=== PATIENT | male | born 2000 | race Caucasian/White ===

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

== ENCOUNTER 2020-04-11 14:01 | Emergency (ER) | payer OTHER, SELFPAY ==
[2020-04-11] VITALS (10 sets, daily range): BP systolic 124–143; BP diastolic 69–81; PULSE 63–88; RESP 15–18; TEMP 36.6–36.8; O2SAT 94–98; BMI 19.2
--- NOTE | 2020-04-11 14:31 | ED_ITS ---
HPI - Dizziness <Sammie Avilez PA-C - Last Filed: 04/11/20 19:55> General Chief Complaint: Dizziness Stated Complaint: Working On Car, Hands Went Numb, Light Headed Time Seen by Provider: 04/11/20 14:09 Source: patient Mode of arrival: Ambulatory History of Present Illness HPI Narrative: Gelacio is a 19 yo male that presents to emergency department with numb hands and dizziness. He also reports having a cough, chest congestion, and sore throat. He reports that he was homeless and currently lives in his car. He explains that he has been really cold lately since the temp outside has been low. He reports that his last meal was yesterday which he believes is attributing to his dizziness. He denies previous episodes similar to this in the past. He reports that he was working on his car as he was leaning over the mazariegos, he noticed that is hands were numb. He put his gloves on and had no relief. He explains that his hands are still numb in the unit today. He denies any back pain. He reports that he does have some bilateral posterior neck pain. He denies chest pain or shortness a breath. He denies nausea, vomiting or diarrhea. He reports some abdominal pain but thinks it is from being hungry. He denies any weakness. Related Data Previous Rx's Medication Instructions Recorded metoclopramide HCl [Reglan] 10 mg PO Q6H PRN #14 tab 07/27/19 ondansetron 4 mg PO Q6H PRN #14 tab 07/27/19 Allergies Allergy/AdvReac Type Severity Reaction Status Date / Time morphine Allergy Hives Verified 04/11/20 14:13 Review of Systems <Sammie Avilez PA-C - Last Filed: 04/11/20 19:55> Constitutional Constitutional: Reports body ache(s), Denies chills, Denies fever(s), Denies poor appetite and Denies weakness Eyes Eyes: Denies loss of vision ENT Ears, Nose, Mouth, and Throat: Reports dizziness and Reports neck pain Cardiovascular Cardiovascular: Denies chest pain, Denies syncope and Denies dyspnea Respiratory Respiratory: Reports chest congestion, Reports cough, Denies dyspnea and Reports wheezing Gastrointestinal Gastrointestinal: Reports abdominal pain, Denies hematochezia, Denies change in stool character, Denies constipation, Denies excessive flatus, Denies fecal incontinence, Denies diarrhea, Denies nausea and Denies vomiting Genitourinary Genitourinary: Reports system reviewed and no additional complaints, except as documented Musculoskeletal Musculoskeletal: Reports neck pain Integumentary/Breasts Skin/Breast: Denies rash Neurologic Neurologic: Reports behavioral changes, Reports dizziness, Denies syncope, Denies loss of vision and Denies weakness Psychiatric Psychiatric: Reports behavioral changes Endocrine Endocrine: Reports cold intolerance Hematologic/Lymphatic Hematologic/Lymphatic: Denies easy bleeding and Denies easy bruising Allergic/Immunologic Allergic/Immunologic: Reports wheezing Patient History <Sammie Avilez PA-C - Last Filed: 04/11/20 19:55> Medical History (Updated 04/11/20 @ 17:03 by Sammie Avilez PA-C) Asthma (Acute) Social History Smoking Status: Current every day smoker Smoking Status: Current every day smoker tobacco type: cigarettes and vaping alcohol intake frequency: a few times a month Substance Use Type: marijuana Exam <Sammie Avilez PA-C - Last Filed: 04/11/20 19:55> Initial Vital Signs Initial Vital Signs: Vital Signs Temperature 98.2 F 04/11/20 14:07 Pulse Rate 68 04/11/20 14:07 Respiratory Rate 15 04/11/20 14:07 Blood Pressure 127/81 04/11/20 14:07 Pulse Oximetry 97 04/11/20 14:07 . Const General: cooperative, healthy appearing, comfortable and well developed [facility] Head: normal to inspection Ears: hearing grossly normal bilaterally and external ears normal Nose: external nose normal Face and sinus: normal facial exam Mouth: oral mucosae normal Teeth and gingiva: dentition normal and gingiva normal Throat: posterior oropharynx normal Eyes Eyelids: eyelids normal Conjunctivae: conjunctivae normal Sclera: sclerae normal Neck Neck: normal visual inspection, full ROM and No lymphadenopathy Chest Chest: normal inspection of the chest Resp Effort & Inspection: normal respiratory effort and able to speak in complete sentences Auscultation: crackles bilaterally throughout and wheezes scattered wheezes Cardio Rate: regular rate Rhythm: regular rhythm Heart Sounds: S1 normal, S2 normal and no murmurs GI Inspection: normal to inspection Back/Spine/Pelvis Cervical Spine: cervical ROM normal Thoracic/Lumbar Spine: thoracic and lumbar spine normal to inspection and No paraspinal tenderness Skin General: no rashes or lesions noted, elasticity normal and turgor normal Neuro General: patient alert, patient awake and patient oriented x3 Cognition: normal cognition Speech: speech normal Gait: normal gait Motor: muscle tone normal throughout Extrem General: normal to inspection, full ROM and capillary refill normal Psych Appearance: grossly normal Mental Status: mental status grossly normal Speech and Movement: speech and movement normal <Laci Perez DO - Last Filed: 04/12/20 07:29> Initial Vital Signs Initial Vital Signs: Vital Signs Temperature 98.2 F 04/11/20 14:07 Pulse Rate 68 04/11/20 14:07 Respiratory Rate 15 04/11/20 14:07 Blood Pressure 127/81 04/11/20 14:07 Pulse Oximetry 97 04/11/20 14:07 Course <Sammie Avilez PA-C - Last Filed: 04/11/20 19:55> Course Course Narrative: 1430: evaluated pt at bedside, lungs were concerning due to wheezing and cough. Chest xray ordered. Pt was provided with blanket and sandwich. Will check again to see if symptoms have improved. 1500: xray revealed possible reactive airway disease. Albuterol ordered. 1530: checked on pt, he is no longer feeling lightheaded since he has eaten. He still is having some chest congestion and hands are still numb, hand warmers given to pt to see if this can help with numbness 1545: he reported small improvement with albuterol, decadron and hand warmers, h ands less numb, less light headed/dizzy 1650: check on pt- he is doing better overall. Believes he was dehydrated, hungry, numb hands from the cold, and chest tightness from reactive airway disease- pt reported improvement, will begin discharge at this time Orders Ordered: Discontinued Medications Albuterol (Ventolin Hfa Prepack) 1 box MISC SEEINSTR ONE Stop: 04/11/20 15:01 Last Admin: 04/11/20 16:02 Dose: 1 box Documented by: JFWESTON Dexamethasone (Decadron) 10 mg IV NOW ONE Stop: 04/11/20 15:28 Last Admin: 04/11/20 15:41 Dose: Not Given Documented by: MEGANARTIN Dexamethasone (Decadron) 10 mg PO NOW ONE Stop: 04/11/20 15:32 Last Admin: 04/11/20 15:40 Dose: 10 mg Documented by: ESTHER Consultations Consultation #1: Dr Perez was staffed on presentation, examination, and plan of care Vital Signs Vital signs: Vital Signs - 8 hr 04/11/20 14:07 04/11/20 14:57 04/11/20 15:00 Temperature 98.2 F Pulse Rate 68 79 88 Respiratory Rate 15 Blood Pressure 127/81 Pulse Oximetry 97 97 97 04/11/20 15:30 04/11/20 16:00 04/11/20 16:04 Temperature Pulse Rate 80 63 72 Respiratory Rate 18 Blood Pressure Pulse Oximetry 98 98 98 04/11/20 16:14 04/11/20 16:30 04/11/20 16:31 Temperature 97.8 F Pulse Rate 77 80 75 Respiratory Rate Blood Pressure 143/73 H 124/69 Pulse Oximetry 97 94 96 04/11/20 17:00 Temperature Pulse Rate Respiratory Rate Blood Pressure 126/79 Pulse Oximetry <Laci Perez DO - Last Filed: 04/12/20 07:29> Orders Ordered: Discontinued Medications Albuterol (Ventolin Hfa Prepack) 1 box MISC SEEINSTR ONE Stop: 04/11/20 15:01 Last Admin: 04/11/20 16:02 Dose: 1 box Documented by: HELENA Dexamethasone (Decadron) 10 mg IV NOW ONE Stop: 04/11/20 15:28 Last Admin: 04/11/20 15:41 Dose: Not Given Documented by: ESTHER Dexamethasone (Decadron) 10 mg PO NOW ONE Stop: 04/11/20 15:32 Last Admin: 04/11/20 15:40 Dose: 10 mg Documented by: ESTHER Vital Signs Vital signs: Vital Signs - 8 hr 04/11/20 14:07 04/11/20 14:57 04/11/20 15:00 Temperature 98.2 F Pulse Rate 68 79 88 Respiratory Rate 15 Blood Pressure 127/81 Pulse Oximetry 97 97 97 04/11/20 15:30 04/11/20 16:00 04/11/20 16:04 Temperature Pulse Rate 80 63 72 Respiratory Rate 18 Blood Pressure Pulse Oximetry 98 98 98 04/11/20 16:14 04/11/20 16:30 04/11/20 16:31 Temperature 97.8 F Pulse Rate 77 80 75 Respiratory Rate Blood Pressure 143/73 H 124/69 Pulse Oximetry 97 94 96 04/11/20 17:00 Temperature Pulse Rate Respiratory Rate Blood Pressure 126/79 Pulse Oximetry MDM - Dizziness <Sammie Avilez PA-C - Last Filed: 04/11/20 19:55> Medical Records Attestation: I reviewed the patient's medical records. Lab Data Attestation: I reviewed the patient's lab results. Labs: Lab Results 04/11/20 Range/Units 16:00 COVID-19 PCR Negative (Negative) Imaging Data Chest x-ray: Attestation: I personally reviewed and interpreted this imaging study as follows: Radiologist's Impression: [address] [address] XRay Report Signed Patient: Gelacio Nichole RMR#: [id number] : 2000Acct:[id number] Age/Sex: 19 / MDate of Service: 04/11/20 Loc: ED Accession Number: [id number] Procedure: XR chest 2V Ordering Provider: Sammie Avilez P.A-C PROCEDURE: XR CHEST 2V INDICATIONS: cough/wheezing TECHNIQUE: 2 views of the chest were acquired. COMPARISON: [facility], CHEST 2 VIEW, 10/24/2010, 9:00. FINDINGS: Surgical changes and devices: None. Lungs and pleura: Peribronchial cuffing. Subtle bilateral perihilar infiltrates. No pleural effusions or pneumothorax. Mediastinum: Mediastinal contours are normal. Heart size is normal. Bones and chest wall: No suspicious bony abnormalities. Soft tissues appear unremarkable. IMPRESSION: Subtle bilateral perihilar infiltrates and peribronchial cuffing. Findings may potentially represent reactive airway disease versus viral pneumonitis. Dictated by: Maurilio Castro M.D. on 04/11/2020 at 15:08 Approved by: Maurilio Castro M.D. on 04/11/2020 at 15:10 [facility] Narrative Medical decision making narrative: 19 yo male presents with numbness in hands, dizziness, and chest congestion. Low suspicion of stroke due to age, no neurological symptoms, and no history of clotting disorders. Low suspicion of cardiac since he did not have chest pain, nausea, and due to his age. Pt had not eaten in a day, so dizziness probably attributed to hunger/dehydration. This did improve during visit after eating and drinking. He reports history of asthma. Chest xray ordered to look at lungs- possible viral pneumonitis vs reactive airway disease. Pt was given albuterol and decadron and noted some improvement. No evidence of pneumonia on chest xray. Pt was afebrile. Not tachypneic, non-hypoxic. COVID negative. <Laci Perez DO - Last Filed: 04/12/20 07:29> Lab Data Labs: Lab Results 04/11/20 Range/Units 16:00 COVID-19 PCR Negative (Negative) Discharge Plan Departure Patient Disposition: Home Clinical Impression: Bilateral hand numbness, Dizziness Asthma Qualifiers: Asthma severity: mild Asthma persistence: unspecified Asthma complication type: unspecified Qualified Code(s): J45.909 - Unspecified asthma, uncomplicated Discharge Date/Time: 04/11/20 17:12 Instructions: DI for Asthma -- Adult, DI for Dizziness-Nonvertigo Activity Restrictions/Additional Instructions: Thank you for entrusting me with your care today. As discussed, please push fluids to help with hydration status. I recommend keeping warm as much as possible to help with hand numbness. Please eat regularly to keep from getting lightheaded/dizzy. Return to ER if symptoms worsen. Prescriptions: No Action ondansetron 4 mg tablet,disintegrating 4 mg PO Q6H PRN (Reason: nausea and vomiting) Qty: 14 RF: 0 metoclopramide HCl [Reglan] 10 mg tablet 10 mg PO Q6H PRN (Reason: nausea and vomiting) Qty: 14 RF: 0 <Laci Perez DO - Last Filed: 04/12/20 07:29> Cosign ED Attending Cosignature Attestation: Dr Perez Co-Sign Statement: I was available for consultation during this patient's emergency department visit. This chart is signed by myself for administrative purposes only. I did not have direct contact with this patient during this visit. They were seen independently by the APC.
--- NOTE | 2020-04-11 14:57 | PC.NURSE ---
Patient provided with water, sandwiches, and juice.
[2020-04-11] MEDS: DEXAMETHASONE 10 MG/ML VIAL PO (15:40)
[2020-04-11] MEDS: ALBUTEROL HFA PREPACK 1 BOX MISC (16:02)
[2020-04-11 16:38] LABS: COVID19 -Nasal RAPID Negative (Negative)
== END 2020-04-11 17:12 | disposition home or self-care (01) ==
PROVIDERS: Emergency Provider Physician Assistant; Family Provider Family Medicine
DX: J45.909 Unspecified asthma, uncomplicated (principal); R20.0 Anesthesia of skin; R42 Dizziness and giddiness; R05 Cough; J02.9 Acute pharyngitis, unspecified; R10.9 Unspecified abdominal pain
CPT/HCPCS: 71046; 87635; 94640; 99283; J1100

== ENCOUNTER 2020-07-06 20:52 | Emergency (ER) | payer OTHER, MEDICAID, SELFPAY ==
[2020-07-06 20:59] VITALS: BP 136/83; PULSE 71; RESP 18; TEMP 36.8; O2SAT 99
[2020-07-06 21:27] LABS: Add Manual Diff / Slide Review NO; Basophils Absolute Auto 100 /uL (0-100); Basophils Percent Auto 0.5 % (0-2); Eosinophils Absolute Auto 100 /uL (0-450); Eosinophils Percent Auto 0.6 % (2-4); Hemoglobin 14.8 g/dL (13.5-17.5); Lymphocytes Absolute Auto 2200 /uL (1100-4500); Lymphocytes Percent Auto 19.3 % (25-40); Mean Corpuscular HGB Conc 33.7 % (30-36); Mean Corpuscular Hemoglobin 31.7 PG (26-34); Mean Corpuscular Volume 93.9 fL (80-100); Monocytes Absolute Auto 900 /uL (0-900); Monocytes Percent Auto 7.7 % (3-14); Neutrophils Absolute Auto 8300 /uL (1500-7000); Neutrophils Percent Auto 71.9 % (50-75); Platelet Count 201 X10^3/uL (150-400); Red Blood Cell Count 4.68 X10^6/uL (4.5-5.9); Red Cell Distribution Width 13.4 % (11.6-14.8); White Blood Cell Count 11.5 X10^3/uL (4.5-11.0)
[2020-07-06 21:29] LABS: INR 1.1 (0.9-1.3); Prothrombin Time 12.7 SECONDS (10.1-12.7)
[2020-07-06 21:31] LABS: PTT Partial Thromboplastin Tim 34 SECONDS (26.4-36.2)
[2020-07-06 21:32] LABS: Alanine Aminotransferase 15 IU/L (<50); Albumin 4.8 g/dL (3.5-5.0); Albumin Globulin Ratio 1.7 (1.0-2.8); Alkaline Phosphatase 90 U/L (38-126); Aspartate Aminotransferase 21 IU/L (17-59); BUN Creatinine Ratio 11.3 (6-22); Bilirubin Total 0.3 mg/dL (0.2-1.3); Blood Urea Nitrogen 12 mg/dL (9-20); Carbon Dioxide 28 mmol/L (22-32); Chloride 105 mmol/L (98-107); Estimated Glomerular Filt Rate > 60.0 mL/min (>60); Globulin 2.8 g/dL (1.7-4.1); Glucose 96 mg/dL (70-100); HEMOLYSIS < 15 (0-50); Lipase 58 U/L (23-300); Potassium 4.4 mmol/L (3.4-5.1); Sodium 139 mmol/L (137-145); Total Protein 7.6 g/dL (6.3-8.2)
--- NOTE | 2020-07-06 22:40 | DI.CT.S_ITS ---
PROCEDURE: CT ABDOMEN PELVIS W CON INDICATIONS: IV contrast only/abdominal pain TECHNIQUE: After the administration of intravenous contrast, 5 mm thick sections acquired from the diaphragm to the symphysis. 5 mm coronal and sagittal reformats were acquired. For radiation dose reduction, the following was used: automated exposure control, adjustment of mA and/or kV according to patient size. COMPARISON: [facility], CT, CT ABDOMEN PELVIS W CON, 07/27/2019, 19:04. FINDINGS: Image quality: Excellent. ABDOMEN: Lung bases: Lung bases are clear. Heart size is normal. Small hiatal hernia. Solid organs: Liver is normal in size and enhancement. Gallbladder is normal. Biliary system is non dilated. Pancreas enhances normally. Spleen is normal in size and enhancement. No adrenal nodules. Kidneys demonstrate normal size and enhancement, without hydronephrosis. Peritoneum and bowel: Stomach is distended with an air-fluid level. Mild segmental bowel wall thickening is seen in proximal small intestine. Bowel loops demonstrate normal wall thickness and caliber. Moderate amount of stool in colon. Appendix is normal. No free fluid or air. Nodes and vessels: No retroperitoneal or mesenteric adenopathy by size criteria. Aorta and inferior vena cava are normal in size. Miscellaneous: No ventral hernias. PELVIS: Genitourinary: Bladder wall thickness is normal. Miscellaneous: No inguinal hernias or adenopathy. Bones: No suspicious bony lesions. No vertebral body compression fractures. IMPRESSION: 1. Distended stomach and mild segmental bowel wall thickening is seen in proximal small intestine. The CT findings suggest gastroenteritis. No significant discrepancy with the operations supervisor 2nd shift radiology preliminary report. Dictated by: Delmer Long M.D. on 07/07/2020 at 7:34 Approved by: Delmer Long M.D. on 07/07/2020 at 7:39
--- NOTE | 2020-07-06 22:41 | DI.RAD.S_ITS ---
PROCEDURE: XR KNEE LT 3V INDICATIONS: Pain TECHNIQUE: 3 views of the knee were acquired. COMPARISON: None. FINDINGS: Bones: Intramedullary abel with 2 distal interlocking screws noted in the distal left femur. No fractures or dislocations. No suspicious bony lesions. Soft tissues: No joint effusion. No suspicious soft tissue calcifications. IMPRESSION: No acute fracture. No acute osseous lesion. If symptoms and/or clinical suspicion for pathology persists, further assessment with repeat radiographs (7-10 days) or advanced imaging (e.g. CT, MRI or bone scan) should be considered. Dictated by: Sonia Kincaid MD, PhD on 07/07/2020 at 9:13 Approved by: Sonia Kincaid MD, PhD on 07/07/2020 at 9:15
--- NOTE | 2020-07-06 22:42 | ED.ABDPAIN ---
HPI - Abdominal Pain General Chief Complaint: Abdominal Pain Stated Complaint: STATES APPENDIX HURTS Time Seen by Provider: 07/06/20 22:07 Source: patient Mode of arrival: Ambulatory History of Present Illness HPI narrative: Patient here with significant other. Complains of left upper quadrant abdominal pain for the past 2 days. Nausea but no vomiting. No blood in stools or black stools. No changes with eating. Patient states has history of ulcer. Is not on any medications to help. Drinks a lot of carbonated drinks as well as spicy foods. Also complains of left knee pain that is not new. History of injured left knee when he was 16 years of age. No back pain no chest pain no urinary complaints. No hematemesis Related Data Previous Rx's Medication Instructions Recorded metoclopramide HCl [Reglan] 10 mg PO Q6H PRN #14 tab 07/27/19 ondansetron 4 mg PO Q6H PRN #14 tab 07/27/19 ondansetron 4 mg PO Q8H PRN #10 tab 07/06/20 pantoprazole [Protonix] 40 mg PO DAILY #14 tab 07/06/20 sucralfate [Carafate] 1 g PO BID #20 tab 07/06/20 Allergies Allergy/AdvReac Type Severity Reaction Status Date / Time morphine Allergy Hives Verified 04/11/20 14:13 Review of Systems Review of Systems Narrative: GENERAL: Denies chills, fatigue, malaise, fever, sweats. HEENT: Denies sinus pain, ear pain, sore throat RESPIRATORY: Denies dyspnea, cough CARDIOVASCULAR: Denies chest pain, palpitations GASTROINTESTINAL: Complains nausea, denies vomiting, complaint abdominal pain : Denies dysuria, frequency, hematuria MUSCULOSKELETAL: denies muscle complains bony pain SKIN: Denies rash, skin lesions NEUROLOGIC: Denies weakness, numbness ROS Unobtainable: All systems reviewed & are unremarkable except as noted in HPI and below Patient History Medical History Asthma Social History Smoking Status: Current every day smoker Smoking Status: Current every day smoker tobacco type: cigarettes and vaping alcohol intake frequency: a few times a month Substance Use Type: marijuana Exam Narrative Exam Narrative: GENERAL: in no distress, not toxic not dyspneic HEAD: Normocephalic. EYES: Pupils equal round No scleral icterus. No injection no discharge ENT: Mucous membranes moist. NECK: Trachea midline. CARDIOVASCULAR: Regular rate and rhythm without murmurs RESPIRATORY: Clear to auscultation. Breath sounds equal bilaterally. No wheezes, rales, or rhonchi. GASTROINTESTINAL: Abdomen soft, moderate tenderness left upper quadrant. No McBurney point tenderness. No peritoneal signs. Bowel sounds present, no rebound tenderness EXTREMITIES: No gross deformities. BACK: No flank tenderness. NEURO: AOx4. SKIN: Warm and dry PSYCH: Not anxious, is cooperative Initial Vital Signs Initial Vital Signs: Vital Signs Temperature 98.2 F 07/06/20 20:59 Pulse Rate 71 07/06/20 20:59 Respiratory Rate 18 07/06/20 20:59 Blood Pressure 136/83 07/06/20 20:59 Pulse Oximetry 99 07/06/20 20:59 Course Course Course Narrative: No new issues during course of stay Orders Ordered: ED Orders 07/06/20 21:01 EKG-12 Lead Stat 07/06/20 21:10 Complete Blood Count AUTO DIFF Stat Comprehensive Metabolic Panel Stat Lipase Stat Partial Thromboplastin Time Stat Prothrombin Time INR Stat 07/06/20 22:40 CT abdomen pelvis w con Stat 07/06/20 22:41 XR knee LT 3V Stat Discontinued Medications Al Hydrox/Mg Hydrox/Simethicone 20 ml/ Lidocaine HCl 15 ml 0 ml PO NOW ONE Stop: 07/06/20 22:42 Last Admin: 07/06/20 22:52 Dose: 35 ml Documented by: CYRUS Sodium Chloride (Normal Saline 0.9%) 1,000 mls @ 1,000 mls/hr IV BOLUS ONE Stop: 07/06/20 23:39 Last Infusion: 07/06/20 23:55 Dose: 0 mls/hr Documented by: JOSE MIGUEL Admin: 07/06/20 22:52 Dose: 1,000 mls/hr Documented by: CYRUS Ondansetron HCl (Ondansetron 4 Mg/2 Ml Inj) 4 mg IV NOW ONE Stop: 07/06/20 22:42 Last Admin: 07/06/20 22:52 Dose: 4 mg Documented by: CYRUS Pantoprazole Sodium (Pantoprazole 40 Mg Vial) 40 mg IV NOW ONE Stop: 07/06/20 22:42 Last Admin: 07/06/20 22:52 Dose: 40 mg Documented by: CYRUS Reevaluation(s) Reevaluation #1: Feels much better after GI cocktail Protonix and Zofran and IV fluids, he desires discharge home. Time: 23:53 Vital Signs Vital signs: Vital Signs - 8 hr 07/06/20 20:59 07/06/20 23:01 Temperature 98.2 F Pulse Rate 71 66 Respiratory Rate 18 Blood Pressure 136/83 145/76 H Pulse Oximetry 99 99 MDM - Abdominal Pain Differential Diagnosis Differential diagnosis: Likely abdominal pain, acute appendicitis, gastroenteritis and pancreatitis Lab Data Attestation: I reviewed the patient's lab results. Result diagrams: 07/06/20 21:10 07/06/20 21:10 Labs: Lab Results 07/06/20 07/06/20 07/06/20 Range/Units 21:10 21:10 21:10 WBC 11.5 H (4.5-11.0) X10^3/uL RBC 4.68 (4.5-5.9) X10^6/uL Hgb 14.8 (13.5-17.5) g/dL Hct 44.0 (41-53) % MCV 93.9 (80-100) fL MCH 31.7 (26-34) PG MCHC 33.7 (30-36) % RDW 13.4 (11.6-14.8) % Plt Count 201 (150-400) X10^3/uL Neut % (Auto) 71.9 (50-75) % Lymph % (Auto) 19.3 L (25-40) % [place] % (Auto) 7.7 (3-14) % Eos % (Auto) 0.6 L (2-4) % Baso % (Auto) 0.5 (0-2) % Neut # (Auto) 8300 H (9410-8616) /uL Lymph # (Auto) 2200 (9071-7153) /uL [place] # (Auto) 900 (0-900) /uL Eos # (Auto) 100 (0-450) /uL Baso # (Auto) 100 (0-100) /uL PT 12.7 (10.1-12.7) SECONDS INR 1.1 (0.9-1.3) APTT 34 (26.4-36.2) SECONDS Sodium 139 (137-145) mmol/L Potassium 4.4 (3.4-5.1) mmol/L Chloride 105 (98-107) mmol/L Carbon Dioxide 28 (22-32) mmol/L BUN 12 (9-20) mg/dL Creatinine 1.06 (0.66-1.25) mg/dL Estimated GFR > 60.0 (>60) mL/min BUN/Creatinine Ratio 11.3 (6-22) Glucose 96 (70-100) mg/dL Calcium 10.0 (8.4-10.2) mg/dL Total Bilirubin 0.3 (0.2-1.3) mg/dL AST 21 (17-59) IU/L ALT 15 (<50) IU/L Alkaline Phosphatase 90 (38-126) U/L Total Protein 7.6 (6.3-8.2) g/dL Albumin 4.8 (3.5-5.0) g/dL Globulin 2.8 (1.7-4.1) g/dL Albumin/Globulin Ratio 1.7 (1.0-2.8) Lipase 58 (23-300) U/L Point of care testing: Urine Dip Bedside Urine Glucose Negative Bedside Urine Bilirubin - Negative Bedside Urine Ketone - Negative Urine Specific Tolar 1.020 Bedside Urine Occult Blood - Negative Bedside Urine pH 7.0 Bedside Urine Protein - Negative Bedside Urine Urobilinogen - Negative Bedside Urine Nitrite - Negative Bedside Urine Leukocytes - Negative Esterase Imaging Data CT scan - abdomen/pelvis: Radiologist's Impression: CT scan abdomen pelvis wall thickening versus under distention of scattered small and large bowel. Mild enterocolitis could be considered. Normal appendix Extremity x-ray #1: Radiologist's Impression: X-ray left knee no acute findings. Intact hardware. MDM Narrative Medical decision making narrative: CT scan and labs reviewed with patient. Clinically likely gastritis. 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 He will make modifications to his diet, more bland diet Discharge Plan Departure Patient Disposition: Home Clinical Impression: Abdominal pain Qualifiers: Abdominal location: left upper quadrant Qualified Code(s): R10.12 - Left upper quadrant pain Instructions: Hughes Diet, DI for Gastritis, DI for Abdominal Pain-Adult Activity Restrictions/Additional Instructions: No fried fatty greasy foods, spicy foods or carbonated drinks. Call provided clinic tooth pain family doctor. Prescriptions have been sent to her pharmacy [facility]. Return if worse or if any questions or concerns. Prescriptions: New ondansetron 4 mg tablet,disintegrating 4 mg PO Q8H PRN (Reason: nausea and vomiting) Qty: 10 RF: 0 pantoprazole [Protonix] 40 mg tablet,delayed release (DR/EC) 40 mg PO DAILY Qty: 14 RF: 0 sucralfate [Carafate] 1 gram tablet 1 g PO BID Qty: 20 RF: 0 No Action ondansetron 4 mg tablet,disintegrating 4 mg PO Q6H PRN (Reason: nausea and vomiting) Qty: 14 RF: 0 metoclopramide HCl [Reglan] 10 mg tablet 10 mg PO Q6H PRN (Reason: nausea and vomiting) Qty: 14 RF: 0 Referrals: [facility] [Outside]
[2020-07-06] MEDS: SODIUM CHLORIDE 0.9% 1,000 ML 1000 ML IV (22:52)
[2020-07-06] MEDS: ONDANSETRON 4 MG/2 ML INJ IV (22:52)
[2020-07-06] MEDS: MAG HYDROX/ALUMINUM/SIMETH SUS 20 ML, LIDOCAINE VISCOUS 2% 15 ML PO (22:52)
[2020-07-06] MEDS: PANTOPRAZOLE 40 MG VIAL IV (22:52)
[2020-07-06 23:01] VITALS: BP 145/76; PULSE 66; O2SAT 99
== END 2020-07-06 23:58 | disposition home or self-care (01) ==
PROVIDERS: Emergency Provider Emergency Medicine
DX: R10.12 Left upper quadrant pain (principal); R11.0 Nausea
CPT/HCPCS: 36415; 73562; 74177; 80053; 81003; 83690; 85025; 85610; 85730; 96361; 96374; 96375; 99284; C9113; J2405; Q9967

== ENCOUNTER 2021-06-05 13:31 | Emergency (ER) | payer OTHER, MEDICAID, SELFPAY ==
[2021-06-05 13:43] VITALS: BP 125/87; PULSE 86; RESP 18; TEMP 36.9; O2SAT 97; BMI 20.5
--- NOTE | 2021-06-05 14:07 | DI.RAD.S_ITS ---
PROCEDURE: XR HAND RT MIN 3V INDICATIONS: fall wrestling on new years [place] TECHNIQUE: 3 views of the hand(s) acquired. COMPARISON: None. FINDINGS: Bones: No acute fractures or dislocations. Deformity of remote, healed 5th metacarpal fracture. Carpal bones are normally aligned. No suspicious bony lesions. Soft tissues: No suspicious soft tissue calcifications. IMPRESSION: No acute fracture. Dictated by: Brooke Sousa M.D. on 06/05/2021 at 15:01 Approved by: Brooke Sousa M.D. on 06/05/2021 at 15:02
--- NOTE | 2021-06-05 14:07 | DI.RAD.S_ITS ---
PROCEDURE: XR CHEST 2V INDICATIONS: fall wrestling on new years [place] TECHNIQUE: 2 views of the chest were acquired. COMPARISON: [facility], CR, XR CHEST 2V, 04/11/2020, 14:35. FINDINGS: Surgical changes and devices: None. Lungs and pleura: Lungs are clear. No pleural effusions or pneumothorax. Mediastinum: Mediastinal contours are normal. Heart size is normal. Bones and chest wall: No suspicious bony abnormalities. Soft tissues appear unremarkable. IMPRESSION: No acute cardiopulmonary disease. Dictated by: Brooke Sousa M.D. on 06/05/2021 at 15:00 Approved by: Brooke Sousa M.D. on 06/05/2021 at 15:01
[2021-06-05 16:24] VITALS: BP 133/85; PULSE 66; TEMP 36.6; O2SAT 98
== END 2021-06-05 18:23 | disposition left against medical advice (07) ==
PROVIDERS: Emergency Provider Emergency Medicine
DX: R07.9 Chest pain, unspecified (principal); M79.644 Pain in right finger(s)
CPT/HCPCS: 71046; 73130; 99283

== ENCOUNTER 2021-07-30 02:27 | Emergency (ER) | payer OTHER, MEDICAID, SELFPAY ==
[2021-07-30 02:37] VITALS: BP 172/95; PULSE 102; RESP 36; TEMP 36; O2SAT 100; BMI 19.8
--- NOTE | 2021-07-30 02:42 | ED.AMS ---
HPI - Altered Mental Status General Chief Complaint: Anxiety Stated Complaint: alcohol poisioning tonight Time Seen by Provider: 07/30/21 02:29 History of Present Illness HPI narrative: 20M nonsmoker uses marijuana and admits to drinking at least a 6 pack of beer tonight and presents at the request of his girlfriend because he started throwing up. He took a few dabs of marijuana but denies the use of other drugs. He has had multiple episodes of nausea and vomiting feels anxious, stating he is nervous that he will get in trouble because he is under age. Since no fever chills. Denies any history of the same. He denies any chest pain, shortness of breath. Related Data Previous Rx's Medication Instructions Recorded metoclopramide HCl 10 mg tablet 10 mg PO Q6H PRN #14 tab 07/27/19 (Reglan) ondansetron 4 mg disintegrating 4 mg PO Q6H PRN #14 tab 07/27/19 tablet ondansetron 4 mg disintegrating 4 mg PO Q8H PRN #10 tab 07/06/20 tablet pantoprazole 40 mg tablet,delayed 40 mg PO DAILY #14 tab 07/06/20 release (Protonix) sucralfate 1 gram tablet (Carafate) 1 g PO BID #20 tab 07/06/20 Allergies Allergy/AdvReac Type Severity Reaction Status Date / Time morphine Allergy Hives Verified 04/11/20 14:13 Review of Systems Review of Systems Narrative: GENERAL: Denies chills, fatigue, malaise, fever, sweats. HEENT: Denies sinus pain, ear pain, sore throat, difficulty swallowing, dizziness. RESPIRATORY: Denies dyspnea, cough, wheezing, hemoptysis, sputum. CARDIOVASCULAR: Denies chest pain, palpitations, orthopnea, edema, GASTROINTESTINAL: See HPI : Denies dysuria, frequency, incontinence, hematuria, urinary retention. MUSCULOSKELETAL: denies weakness, joint pain, or bony pain SKIN: Denies rash, skin lesions, or other NEUROLOGIC: Denies weakness, headache, numbness, change in speech, confusion, seizures, incoordination. PSYCHIATRIC: No concerning psychosocial issues. 12 point review of systems is negative except for those stated above Patient History Medical History Asthma Social History Smoking Status: Current every day smoker Smoking Status: Current every day smoker tobacco type: cigarettes and vaping alcohol intake frequency: a few times a month Substance Use Type: marijuana Exam Narrative Exam Narrative: GENERAL: [20 year old patient appears stated age. Well-developed patient, in mild distress. Anxious, speaking clearly, holding an emesis bag HEAD: Atraumatic. Normocephalic. EYES: Pupils equal round and reactive. Extraocular motions intact. No scleral icterus. No injection or drainage. ENT: Nose without bleeding, purulent drainage. Throat without erythema, tonsillar hypertrophy or exudate. Airway patent. NECK: Trachea midline. Non tender CARDIOVASCULAR: Regular rate and rhythm without murmurs, gallops, or rubs. RESPIRATORY: Clear to auscultation. Breath sounds equal bilaterally. No wheezes, rales, or rhonchi. GASTROINTESTINAL: Abdomen soft, non-tender, nondistended. EXTREMITIES: No edema or joint tenderness. BACK: Nontender without deformity or crepitance. No flank tenderness. NEURO: AOx3. SKIN: No rash or erythema of visible areas Initial Vital Signs Initial Vital Signs: Vital Signs Temperature 96.8 F L 07/30/21 02:37 Pulse Rate 102 H 07/30/21 02:37 Respiratory Rate 36 H 07/30/21 02:37 Blood Pressure 172/95 H 07/30/21 02:37 Pulse Oximetry 100 07/30/21 02:37 Course Orders Ordered: ED Orders 07/30/21 02:45 Complete Blood Count AUTO DIFF Stat Comprehensive Metabolic Panel Stat Ethanol (ETOH) Stat Ketones (Beta-Hydroxybutyrate) Stat Magnesium Stat 07/30/21 03:50 Urine Drug Screen, Rapid Stat Discontinued Medications Sodium Chloride (Normal Saline 0.9%) 1,000 mls @ 1,000 mls/hr IV BOLUS ONE Stop: 07/30/21 03:39 Last Infusion: 07/30/21 03:59 Dose: 0 mls/hr Documented by: Admin: 07/30/21 02:51 Dose: 1,000 mls/hr Documented by: KIEL Ondansetron HCl (Ondansetron 4 Mg/2 Ml Inj) 4 mg IV NOW ONE Stop: 02/27/22 02:41 Last Admin: 07/30/21 02:51 Dose: 4 mg Documented by: KIEL Ondansetron HCl (Ondansetron 4 Mg Odt Prepack) 1 bottle MISC SEEINSTR ONE Stop: 07/30/21 04:18 Pantoprazole Sodium (Pantoprazole 40 Mg Vial) 40 mg IV NOW ONE Stop: 07/30/21 02:41 Last Admin: 07/30/21 02:51 Dose: 40 mg Documented by: KIEL Reevaluation(s) Reevaluation #1: Patient continues to improve, no longer feeling anxious Reevaluation #2: Patient speaking clearly, demonstrates capacity, ambulates with a steady gait. Sister coming to pick him. Vital Signs Vital signs: Vital Signs - 8 hr 07/30/21 02:37 07/30/21 02:55 07/30/21 03:00 Temperature 96.8 F L Pulse Rate 102 H 100 H 90 Respiratory Rate 36 H Blood Pressure 172/95 H Pulse Oximetry 100 100 100 07/30/21 03:30 Temperature Pulse Rate 83 Respiratory Rate Blood Pressure Pulse Oximetry 99 MDM - Altered Mental Status Lab Data Result diagrams: 07/30/21 02:45 07/30/21 02:45 Labs: Lab Results 07/30/21 07/30/21 07/30/21 Range/Units 02:45 02:45 02:45 WBC 7.0 (4.5-11.0) X10^3/uL RBC 4.67 (4.5-5.9) X10^6/uL Hgb 14.7 (13.5-17.5) g/dL Hct 43.8 (41-53) % MCV 93.8 (80-100) fL MCH 31.4 (26-34) PG MCHC 33.5 (30-36) % RDW 13.4 (11.6-14.8) % Plt Count 204 (150-400) X10^3/uL Neut % (Auto) 51.0 (50-75) % Lymph % (Auto) 38.2 (25-40) % [place] % (Auto) 6.9 (3-14) % Eos % (Auto) 3.2 (2-4) % Baso % (Auto) 0.7 (0-2) % Neut # (Auto) 3600 (0341-6551) /uL Lymph # (Auto) 2700 (3917-7247) /uL [place] # (Auto) 500 (0-900) /uL Eos # (Auto) 200 (0-450) /uL Baso # (Auto) 100 (0-100) /uL Sodium 140 (137-145) mmol/L Potassium 3.6 (3.4-5.1) mmol/L Chloride 105 (98-107) mmol/L Carbon Dioxide 24 (22-32) mmol/L BUN 12 (9-20) mg/dL Creatinine 0.99 (0.66-1.25) mg/dL Estimated GFR > 60.0 (>60) mL/min BUN/Creatinine Ratio 12.1 (6-22) Glucose 103 H (70-100) mg/dL Calcium 9.5 (8.4-10.2) mg/dL Magnesium (1.6-2.3) mg/dL Total Bilirubin 0.4 (0.2-1.3) mg/dL AST 28 (17-59) IU/L ALT 27 (<50) IU/L Alkaline Phosphatase 72 (38-126) U/L Total Protein 7.9 (6.3-8.2) g/dL Albumin 5.1 H (3.5-5.0) g/dL Globulin 2.8 (1.7-4.1) g/dL Albumin/Globulin Ratio 1.8 (1.0-2.8) U Opiates 300ng/mL cut (Negative) Ur Oxycodone Screen (Negative) Urine Methadone Screen (Negative) Ur Barbiturates Screen (Negative) U Tricyclic Antidepress (Negative) Ur Phencyclidine Scrn (Negative) Ur Amphetamines Screen (Negative) U Methamphetamines Scrn (Negative) Ur MDMA Scrn (Ecstasy) (Negative) U Benzodiazepines Scrn (Negative) Urine Cocaine Screen (Negative) U Marijuana (THC) Screen (Negative) Ethyl Alcohol ( - 10) mg/dL Ketones 0.10 (<0.27) mmol/L 07/30/21 07/30/21 07/30/21 Range/Units 02:45 02:45 03:50 WBC (4.5-11.0) X10^3/uL RBC (4.5-5.9) X10^6/uL Hgb (13.5-17.5) g/dL Hct (41-53) % MCV (80-100) fL MCH (26-34) PG MCHC (30-36) % RDW (11.6-14.8) % Plt Count (150-400) X10^3/uL Neut % (Auto) (50-75) % Lymph % (Auto) (25-40) % [place] % (Auto) (3-14) % Eos % (Auto) (2-4) % Baso % (Auto) (0-2) % Neut # (Auto) (6691-2280) /uL Lymph # (Auto) (6273-1458) /uL [place] # (Auto) (0-900) /uL Eos # (Auto) (0-450) /uL Baso # (Auto) (0-100) /uL Sodium (137-145) mmol/L Potassium (3.4-5.1) mmol/L Chloride (98-107) mmol/L Carbon Dioxide (22-32) mmol/L BUN (9-20) mg/dL Creatinine (0.66-1.25) mg/dL Estimated GFR (>60) mL/min BUN/Creatinine Ratio (6-22) Glucose (70-100) mg/dL Calcium (8.4-10.2) mg/dL Magnesium 2.0 (1.6-2.3) mg/dL Total Bilirubin (0.2-1.3) mg/dL AST (17-59) IU/L ALT (<50) IU/L Alkaline Phosphatase (38-126) U/L Total Protein (6.3-8.2) g/dL Albumin (3.5-5.0) g/dL Globulin (1.7-4.1) g/dL Albumin/Globulin Ratio (1.0-2.8) U Opiates 300ng/mL cut Negative (Negative) Ur Oxycodone Screen Negative (Negative) Urine Methadone Screen Negative (Negative) Ur Barbiturates Screen Negative (Negative) U Tricyclic Antidepress Negative (Negative) Ur Phencyclidine Scrn Negative (Negative) Ur Amphetamines Screen Negative (Negative) U Methamphetamines Scrn Negative (Negative) Ur MDMA Scrn (Ecstasy) Negative (Negative) U Benzodiazepines Scrn Negative (Negative) Urine Cocaine Screen Negative (Negative) U Marijuana (THC) Screen Positive H (Negative) Ethyl Alcohol 160 H ( - 10) mg/dL Ketones (<0.27) mmol/L MDM Narrative Medical decision making narrative: Patient came in anxious and admitted to consuming alcohol this evening. Labs have been drawn and are largely unremarkable. Over the duration of the visit he clears mentally, eventually able to speak clearly without slurring, ambulated steady gait in demonstrate capacity. He has a ride home. Return precautions given and questions answered to his apparent satisfaction Discharge Plan Departure Patient Disposition: Home Clinical Impression: Alcohol abuse Instructions: Alcohol Use Disorder Activity Restrictions/Additional Instructions: *You have been diagnosed with [alcohol abuse ] *What to do: *Please continue to take your regular medications as directed. [ ] New medication prescriptions sent to your pharmacy: [ ] [ ] New medication written as a paper prescription [ x] No new medications given *Please follow up with your primary care provider in 2-3 days, call for an appointment. Let them know you were seen in the Emergency Department and that we ask that you be seen in follow up. We will electronically transmit a record of today's note if your PCP is in our system *If you do not have a primary care provider please contact the [facility] Resource line at [phone]. They will ask some questions about your medical history and help get you set up with a doctor in the community. *Return to Emergency Department if you should have any new, worsening or concerning symptoms, such as [fever greater than 101 F, shaking chills, worsening pain, persistent vomiting or other bothersome symptoms] Prescriptions: No Action ondansetron 4 mg tablet,disintegrating 4 mg PO Q6H PRN (Reason: nausea and vomiting) Qty: 14 0RF metoclopramide HCl [Reglan] 10 mg tablet 10 mg PO Q6H PRN (Reason: nausea and vomiting) Qty: 14 0RF ondansetron 4 mg tablet,disintegrating 4 mg PO Q8H PRN (Reason: nausea and vomiting) Qty: 10 0RF pantoprazole [Protonix] 40 mg tablet,delayed release (DR/EC) 40 mg PO DAILY Qty: 14 0RF sucralfate [Carafate] 1 gram tablet 1 g PO BID Qty: 20 0RF
[2021-07-30] MEDS: ONDANSETRON 4 MG/2 ML INJ IV (02:51)
[2021-07-30] MEDS: SODIUM CHLORIDE 0.9% 1,000 ML 1000 ML IV (02:51)
[2021-07-30] MEDS: PANTOPRAZOLE 40 MG VIAL IV (02:51)
[2021-07-30 02:55] VITALS: PULSE 100; O2SAT 100
[2021-07-30 03:00] VITALS: PULSE 90; O2SAT 100
[2021-07-30 03:06] LABS: Add Manual Diff / Slide Review NO; Basophils Absolute Auto 100 /uL (0-100); Basophils Percent Auto 0.7 % (0-2); Eosinophils Absolute Auto 200 /uL (0-450); Eosinophils Percent Auto 3.2 % (2-4); Hematocrit 43.8 % (41-53); Hemoglobin 14.7 g/dL (13.5-17.5); Lymphocytes Absolute Auto 2700 /uL (1100-4500); Lymphocytes Percent Auto 38.2 % (25-40); Mean Corpuscular HGB Conc 33.5 % (30-36); Mean Corpuscular Hemoglobin 31.4 PG (26-34); Mean Corpuscular Volume 93.8 fL (80-100); Monocytes Absolute Auto 500 /uL (0-900); Monocytes Percent Auto 6.9 % (3-14); Neutrophils Absolute Auto 3600 /uL (1500-7000); Platelet Count 204 X10^3/uL (150-400); Red Blood Cell Count 4.67 X10^6/uL (4.5-5.9); Red Cell Distribution Width 13.4 % (11.6-14.8)
[2021-07-30 03:10] LABS: Alanine Aminotransferase 27 IU/L (<50); Albumin 5.1 g/dL (3.5-5.0); Albumin Globulin Ratio 1.8 (1.0-2.8); Alkaline Phosphatase 72 U/L (38-126); Aspartate Aminotransferase 28 IU/L (17-59); BUN Creatinine Ratio 12.1 (6-22); Bilirubin Total 0.4 mg/dL (0.2-1.3); Blood Urea Nitrogen 12 mg/dL (9-20); Calcium 9.5 mg/dL (8.4-10.2); Carbon Dioxide 24 mmol/L (22-32); Chloride 105 mmol/L (98-107); Estimated Glomerular Filt Rate > 60.0 mL/min (>60); Globulin 2.8 g/dL (1.7-4.1); Glucose 103 mg/dL (70-100); HEMOLYSIS < 15 (0-50); Potassium 3.6 mmol/L (3.4-5.1); Sodium 140 mmol/L (137-145); Total Protein 7.9 g/dL (6.3-8.2)
[2021-07-30 03:30] VITALS: PULSE 83; O2SAT 99
[2021-07-30 03:46] LABS: Ethanol (ETOH) 160 mg/dL
--- NOTE | 2021-07-30 03:48 | PC.NURSE ---
pt was drinking tonight and doing dabs, now believes he has alcohol poisoning, pt is tachypneic but states he is unable to slow his breathing down, c/o pain inside and being unable to function
[2021-07-30 04:11] LABS: UR Morphine/Opiate cutoff 300 Negative (Negative); Ur Creatinine 20 (Normal); Ur Specific Gravity 1.015 (Normal); Urine Amphetamines Negative (Negative); Urine Barbiturates Negative (Negative); Urine Benzodiazepines Negative (Negative); Urine Cocaine Negative (Negative); Urine MDMA Negative (Negative); Urine Methadone Negative (Negative); Urine Methamphetamines Negative (Negative); Urine Oxycodone Negative (Negative); Urine Phencyclidine Negative (Negative); Urine Tetrahydrocannabinol Positive (Negative); Urine Tricyclic Antidepressant Negative (Negative); Urine pH 7 (Normal)
== END 2021-07-30 04:37 | disposition home or self-care (01) ==
PROVIDERS: Emergency Provider Emergency Medicine
DX: F10.10 Alcohol abuse, uncomplicated (principal); F17.210 Nicotine dependence, cigarettes, uncomplicated; F17.290 Nicotine dependence, other tobacco product, uncomplicated; Y90.6 Blood alcohol level of 120-199 mg/100 ml
CPT/HCPCS: 36415; 80053; 80305; 80320; 82009; 83735; 85025; 96361; 96374; 96375; 99284; C9113; J2405

== ENCOUNTER 2021-10-12 14:27 | Emergency (ER) | payer OTHER, MEDICAID, SELFPAY ==
[2021-10-12 14:34] VITALS: BP 133/81; PULSE 66; RESP 15; TEMP 36.6; O2SAT 98; BMI 17.9
--- NOTE | 2021-10-12 15:50 | ED.URI ---
HPI - URI/Sore Throat <Monico Chua PA-C - Last Filed: 10/12/21 16:14> General Chief Complaint: Upper Respiratory Symptoms Stated Complaint: Swollen tonsils, getting hard to breathe Time Seen by Provider: 10/12/21 15:16 Source: patient Mode of arrival: Ambulatory History of Present Illness HPI Narrative: Patient is a 21-year-old male who presents to the ED complaining of sore throat. He reports symptoms started this morning. Symptoms include sore throat that is exacerbated by eating, mild nausea, and hoarseness. Denies any ear pain, sinus pressure, fever, or nasal congestion. Rates pain 3/10 at rest and a 7/10 when eating. Pt reported wheezing this morning but has a hx of asthma. He has a hx of streph pharyngitis. Related Data Previous Rx's Medication Instructions Recorded metoclopramide HCl 10 mg tablet 10 mg PO Q6H PRN #14 tab 07/27/19 (Reglan) ondansetron 4 mg disintegrating 4 mg PO Q6H PRN #14 tab 07/27/19 tablet ondansetron 4 mg disintegrating 4 mg PO Q8H PRN #10 tab 07/06/20 tablet pantoprazole 40 mg tablet,delayed 40 mg PO DAILY #14 tab 07/06/20 release (Protonix) sucralfate 1 gram tablet (Carafate) 1 g PO BID #20 tab 07/06/20 amoxicillin 500 mg capsule 500 mg PO BID #20 cap 10/12/21 Allergies Allergy/AdvReac Type Severity Reaction Status Date / Time morphine Allergy Hives Verified 10/12/21 14:34 Review of Systems <Monico Chua PA-C - Last Filed: 10/12/21 16:14> Review of Systems ROS Unobtainable: All systems reviewed & are unremarkable except as noted in HPI and below Constitutional Constitutional: Denies fatigue, Denies fever(s) and Denies weakness Eyes Eyes: Denies irritation ENT Ears, Nose, Mouth, and Throat: Reports change in voice, Reports dysphagia, Denies otalgia, Denies facial pain, Reports hoarseness, Denies nasal congestion, Denies nasal discharge, Reports neck pain, Reports odynophagia, Denies sinus pain, Denies sinus pressure, Reports sore throat and Reports throat swelling Cardiovascular Cardiovascular: Denies chest pain, Denies lightheadedness and Denies dyspnea Respiratory Respiratory: Denies cough, Denies dyspnea and Reports wheezing Gastrointestinal Gastrointestinal: Denies abdominal pain, Reports dysphagia, Denies nausea, Reports odynophagia and Denies vomiting Musculoskeletal Musculoskeletal: Reports neck pain Neurologic Neurologic: Denies weakness Endocrine Endocrine: Denies fatigue Allergic/Immunologic Allergic/Immunologic: Denies urticaria, Reports throat swelling and Reports wheezing Patient History <Monico Chua PA-C - Last Filed: 10/12/21 16:14> Medical History Asthma Social History Smoking Status: Current every day smoker Smoking Status: Current every day smoker tobacco type: cigarettes and vaping alcohol intake frequency: 3 or more drinks per day Substance Use Type: marijuana Exam <Monico Chua PA-C - Last Filed: 10/12/21 16:14> Initial Vital Signs Initial Vital Signs: Vital Signs Temperature 97.9 F 10/12/21 14:34 Pulse Rate 66 10/12/21 14:34 Respiratory Rate 15 10/12/21 14:34 Blood Pressure 133/81 10/12/21 14:34 Pulse Oximetry 98 10/12/21 14:34 Const General: cooperative, healthy appearing and comfortable [facility] Head: normal to inspection Ears: external ears normal and TM's normal bilaterally Nose: external nose normal and nasal mucous membranes and turbinates normal Face and sinus: normal facial exam and sinuses nontender Mouth: other (erythematous tonsils bilaterally, exudate present bilaterally) Teeth and gingiva: dentition normal Throat: posterior oropharynx abnormal edema, erythema and exudates Eyes General: Yes appearance normal, both eyes and all related structures Pupils: PERRL Neck Neck: lymphadenopathy (tonsillar bilaterally) Resp Effort & Inspection: normal respiratory effort Auscultation: clear to auscultation bilaterally Skin General: no rashes or lesions noted <Kourtney Lopez DO - Last Filed: 10/15/21 08:15> Initial Vital Signs Initial Vital Signs: Vital Signs Temperature 97.9 F 10/12/21 14:34 Pulse Rate 66 10/12/21 14:34 Respiratory Rate 15 10/12/21 14:34 Blood Pressure 133/81 10/12/21 14:34 Pulse Oximetry 98 10/12/21 14:34 Course <SHANICE Mathew Last Filed: 10/12/21 16:14> Vital Signs Vital signs: Vital Signs - 8 hr 10/12/21 14:34 Temperature 97.9 F Pulse Rate 66 Respiratory Rate 15 Blood Pressure 133/81 Pulse Oximetry 98 <Kourtney Lopez DO - Last Filed: 10/15/21 08:15> Vital Signs Vital signs: Vital Signs - 8 hr 10/12/21 14:34 Temperature 97.9 F Pulse Rate 66 Respiratory Rate 15 Blood Pressure 133/81 Pulse Oximetry 98 MDM - URI/Sore Throat <Monico Chua PA-C - Last Filed: 10/12/21 16:14> Differential Diagnosis Differential diagnosis: Likely pharyngitis Lab Data Labs: Point of Care Testing Rapid Strep A Positive MDM Narrative Medical decision making narrative: Patient was evaulated for sore throat. Lab showed positive streph. Patients exam showed erythematous oropharynx with exudate and tonsillar lympadenopathy consistent with streph pharyngitis. This is a condition that we can treat outpatient. Spoke to the patient about an antibiotic injection or an antibiotic prescription and he opted for the course of antibiotics outpatient. Patient will be discharged home and will moss picker prescription from pharmacy at his convenience. <Kourtney Lopez DO - Last Filed: 10/15/21 08:15> Lab Data Labs: Point of Care Testing Rapid Strep A Positive Discharge Plan Departure Patient Disposition: Home Clinical Impression: Pharyngitis Qualifiers: Pharyngitis/tonsillitis etiology: streptococcus Qualified Code(s): J02.0 - Streptococcal pharyngitis Instructions: DI for Strep Throat Prescriptions: New amoxicillin 500 mg capsule 500 mg PO BID Qty: 20 0RF No Action ondansetron 4 mg tablet,disintegrating 4 mg PO Q6H PRN (Reason: nausea and vomiting) Qty: 14 0RF metoclopramide HCl [Reglan] 10 mg tablet 10 mg PO Q6H PRN (Reason: nausea and vomiting) Qty: 14 0RF ondansetron 4 mg tablet,disintegrating 4 mg PO Q8H PRN (Reason: nausea and vomiting) Qty: 10 0RF pantoprazole [Protonix] 40 mg tablet,delayed release (DR/EC) 40 mg PO DAILY Qty: 14 0RF sucralfate [Carafate] 1 gram tablet 1 g PO BID Qty: 20 0RF <Kourtney Lopez, - Last Filed: 10/15/21 08:15> Cosign ED Attending Cosignature Attestation: I was immediately available in the department for consultation. Documentation has been reviewed. I agree with assessment and plan.
== END 2021-10-12 16:21 | disposition home or self-care (01) ==
PROVIDERS: Emergency Provider Physician Assistant
DX: J02.0 Streptococcal pharyngitis (principal)
CPT/HCPCS: 87880; 99281; 99282

== ENCOUNTER 2022-02-05 11:22 | Emergency (ER) | payer OTHER, MEDICAID, SELFPAY ==
[2022-02-05 11:38] VITALS: BP 165/92; PULSE 78; RESP 16; TEMP 37.2; O2SAT 97; BMI 18.6
--- NOTE | 2022-02-05 13:04 | DI.RAD.S_ITS ---
PROCEDURE: XR CHEST 2V INDICATIONS: soa TECHNIQUE: 2 views of the chest were acquired. COMPARISON: [facility], CR, XR CHEST 2V, 06/05/2021, 14:09. FINDINGS: Surgical changes and devices: None. Lungs and pleura: Lungs are clear. No pleural effusions or pneumothorax. Mediastinum: Subtle linear hypodensities are seen projecting over the upper mediastinum and lower neck. Mediastinal contours are otherwise normal. Bones and chest wall: No suspicious bony abnormalities. Soft tissues appear unremarkable. IMPRESSION: 1. Possible linear hyperdensities projecting over the lower neck and upper mediastinum could represent pneumomediastinum. Recommend CT of the chest for further evaluation. 2. Lungs are clear. No pneumothorax. Dictated by: Meño Beasley M.D. on 02/05/2022 at 12:38 Approved by: Meño Beasley M.D. on 02/05/2022 at 12:42
--- NOTE | 2022-02-05 14:04 | DI.CT.S_ITS ---
PROCEDURE: CT CHEST WO CON INDICATIONS: ? Pneumomediastinum TECHNIQUE: Noncontrast 5 mm thick sections acquired from the pulmonary apices to the posterior costophrenic angles. 1 mm lung window, 5 mm thick coronal and sagittal and 7 mm axial MIP reformats were then acquired. For radiation dose reduction, the following was used: automated exposure control, adjustment of mA and/or kV according to patient size. COMPARISON: [facility], CR, XR CHEST 2V, 02/05/2022, 13:07. FINDINGS: Image quality: Excellent. Lungs and pleura: No acute air space opacities. No pleural effusions or pneumothorax. Central and peripheral airways are patent and normal in caliber. Mediastinum: Multiple foci of gas are seen throughout the mediastinum and bilateral palomo. Heart size is normal. No pericardial effusion. No mediastinal adenopathy by size criteria. Thoracic aorta and central pulmonary arteries are normal in size. Esophagus is normal in caliber. No hiatal hernia. Bones and chest wall: No suspicious bony lesions. No vertebral body compression fractures. No axillary or supraclavicular adenopathy by size criteria. Thyroid is unremarkable. Abdomen: No pneumoperitoneum. Visualized upper abdominal solid organs and bowel loops appear normal in the absence of contrast. IMPRESSION: Nonspecific pneumomediastinum. No signs of esophageal perforation or disruption of the trachea or central bronchi. Dictated by: Meño Beasley M.D. on 02/05/2022 at 13:45 Approved by: Meño Beasley M.D. on 02/05/2022 at 13:54
[2022-02-05] MEDS: LIDOCAINE VISCOUS 2% 15 ML SOLUTION PO (15:32)
[2022-02-05 15:48] VITALS: BP 127/82; PULSE 60; RESP 16; O2SAT 99
--- NOTE | 2022-02-05 16:21 | ED_ITS ---
HPI - General Adult <Nuvia Richards PA-C - Last Filed: 02/05/22 16:34> General Chief complaint: Upper Respiratory Symptoms Stated complaint: using smelling salts x 2 or 3x before exercise Time Seen by Provider: 02/05/22 13:20 History of Present Illness HPI narrative: 21-year-old male presents to the emergency department with 2 days of burning throat and chest. Patient states that he used 2-3 vials of smelling salts AKA ammonia prior to a heavy weightlifting session for 3 days in succession, following which yesterday he started experiencing burning in his throat and chest. Patient states that this morning he woke up with some throat swelling and burning. Patient denies trouble breathing, fever, chills, nausea, vomiting, abdominal pain, lightheadedness, dizziness, syncope. Patient endorses occasional cocaine use, which he states he snorts through his nostrils. Patient also is a daily cigarette smoker. Patient uses marijuana. Patient drinks alcohol occasionally. Patient endorses a history of asthma. Patient says he does not have a inhaler currently, because he does not have a PCP currently. Patient also states that he has had 3 heart attacks, the last of which was 2 years ago. Patient states he was seen by a milling machine operator, that they could not find anything wrong. Patient denies any familial history of early cardiac or cardiac issues. Related Data Previous Rx's Medication Instructions Recorded metoclopramide HCl 10 mg tablet 10 mg PO Q6H PRN nausea and 07/27/19 (Reglan) vomiting #14 tabs ondansetron 4 mg disintegrating 4 mg PO Q6H PRN nausea and 07/27/19 tablet vomiting #14 tabs ondansetron 4 mg disintegrating 4 mg PO Q8H PRN nausea and 07/06/20 tablet vomiting #10 tabs pantoprazole 40 mg tablet,delayed 40 mg PO DAILY #14 tabs 07/06/20 release (Protonix) sucralfate 1 gram tablet (Carafate) 1 g PO BID #20 tabs 07/06/20 amoxicillin 500 mg capsule 500 mg PO BID #20 caps 10/12/21 albuterol sulfate 90 mcg/actuation 1 inh inhalation QID PRN shortness 02/05/22 aerosol inhaler of breath or wheezing #8.5 grams prednisone 20 mg tablet 40 mg PO DAILY 5 days #10 tabs 02/05/22 Allergies Allergy/AdvReac Type Severity Reaction Status Date / Time morphine Allergy Hives Verified 10/12/21 14:34 Review of Systems <Nuvia Richards PA-C - Last Filed: 02/05/22 16:34> Review of Systems ROS Unobtainable: All systems reviewed & are unremarkable except as noted in HPI and below Constitutional Constitutional: Denies chills, Denies fatigue, Denies fever(s), Denies frequent falls, Denies lethargy and Denies weakness Eyes Eyes: Denies change in vision, Denies eye discharge, Denies irritation and Denies loss of vision ENT Ears, Nose, Mouth, and Throat: Denies change in voice, Denies dizziness, Denies neck pain, Reports sore throat and Reports throat swelling Comments: Burning in throat Cardiovascular Cardiovascular: Denies chest pain, Denies irregular heart rhythm, Denies lightheadedness, Denies palpitations, Denies dyspnea, Denies dyspnea on exertion and Denies orthopnea Respiratory Respiratory: Denies cough, Denies dyspnea, Denies dyspnea on exertion and Denies wheezing Comments: Burning with breathing Gastrointestinal Gastrointestinal: Denies abdominal pain, Denies change in bowel habits, Denies diarrhea, Denies nausea and Denies vomiting Genitourinary Genitourinary: Denies hematuria, Denies flank pain, Denies urinary incontinence and Denies urinary urgency Musculoskeletal Musculoskeletal: Denies back pain, Denies muscle weakness, Denies neck pain, Denies numbness and Denies tingling Integumentary/Breasts Skin/Breast: Denies pruritus, Denies erythema, Denies rash and Denies wounds Neurologic Neurologic: Denies behavioral changes, Denies confusion, Denies dizziness, Denies frequent falls, Denies loss of vision, Denies numbness, Denies tingling and Denies weakness Psychiatric Psychiatric: Denies anxiety, Denies behavioral changes, Denies confusion, Denies depression, Denies homicidal ideation and Denies suicidal ideation Endocrine Endocrine: Denies fatigue, Denies flushing and Denies palpitations Hematologic/Lymphatic Hematologic/Lymphatic: Denies easy bruising Allergic/Immunologic Allergic/Immunologic: Denies urticaria, Reports throat swelling and Denies wheezing Patient History <Nuvia Richards PA-C - Last Filed: 02/05/22 16:34> Medical History Asthma Social History Smoking Status: Current every day smoker Smoking Status: Current every day smoker tobacco type: cigarettes and vaping alcohol intake frequency: 3 or more drinks per day Substance Use Type: marijuana Exam <Nuvia Richards PA-C - Last Filed: 02/05/22 16:34> Narrative Exam Narrative: Const General:?cooperative, healthy appearing and comfortable [facility] Head:?normal to inspection Ears:?hearing grossly normal bilaterally Nose:?external nose normal Face and sinus:?normal facial exam and sinuses nontender Mouth:?oral mucosae normal; tongue normal Throat:?posterior oropharynx normal; airways patent, no swelling or erythema visualized on exam Eyes General:?appearance normal, both eyes and all related structures Neck Neck:?normal visual inspection and no lymphadenopathy noted Resp Effort & Inspection:?normal respiratory effort Auscultation:?clear to auscultation bilaterally Cardio Rate:?regular rate Rhythm:?regular rhythm Neuro General:?patient alert, patient awake and patient oriented x3 Initial Vital Signs Initial Vital Signs: Vital Signs Temperature 98.9 F 02/05/22 11:38 Pulse Rate 78 02/05/22 11:38 Respiratory Rate 16 02/05/22 11:38 Blood Pressure 165/92 H 02/05/22 11:38 Pulse Oximetry 97 02/05/22 11:38 Oxygen Delivery Method 02/05/22 11:38 <Rodrigo Lopez MD - Last Filed: 02/06/22 08:49> Initial Vital Signs Initial Vital Signs: Vital Signs Temperature 98.9 F 02/05/22 11:38 Pulse Rate 78 02/05/22 11:38 Respiratory Rate 16 02/05/22 11:38 Blood Pressure 165/92 H 02/05/22 11:38 Pulse Oximetry 97 02/05/22 11:38 Oxygen Delivery Method 02/05/22 11:38 Course <Nuvia Richards PA-C - Last Filed: 02/05/22 16:34> Orders Ordered: Discontinued Medications Lidocaine HCl (Lidocaine Viscous 2% 15 Ml Solution) 15 ml PO NOW ONE Stop: 02/05/22 15:19 Last Admin: 02/05/22 15:32 Dose: 15 ml Documented By: BS Vital Signs Vital signs: Vital Signs - 8 hr 02/05/22 11:38 02/05/22 15:48 Temperature 98.9 F Pulse Rate 78 60 Respiratory Rate 16 16 Blood Pressure 165/92 H 127/82 Pulse Oximetry 97 99 Oxygen Delivery Method Room Air Room Air <Rodrigo Lopez MD - Last Filed: 02/06/22 08:49> Orders Ordered: Discontinued Medications Lidocaine HCl (Lidocaine Viscous 2% 15 Ml Solution) 15 ml PO NOW ONE Stop: 02/05/22 15:19 Last Admin: 02/05/22 15:32 Dose: 15 ml Documented By: BS Vital Signs Vital signs: Vital Signs - 8 hr 02/05/22 11:38 02/05/22 15:48 Temperature 98.9 F Pulse Rate 78 60 Respiratory Rate 16 16 Blood Pressure 165/92 H 127/82 Pulse Oximetry 97 99 Oxygen Delivery Method Room Air Room Air Medical Decision Making <Nuvia Richards PA-C - Last Filed: 02/05/22 16:34> Imaging Data CT scan - chest: Radiologist's Impression: PROCEDURE:? CT CHEST WO CON ? INDICATIONS:? ?? Pneumomediastinum ? TECHNIQUE: Noncontrast 5 mm thick sections acquired from the pulmonary apices to the posterior costophrenic angles.? 1 mm lung window, 5 mm thick coronal and sagittal and 7 mm axial MIP reformats were then acquired.? For radiation dose reduction, the following was used:? automated exposure control, adjustment of mA and/or kV according to patient size.? ? COMPARISON:? [facility], CR, XR CHEST 2V, 02/05/2022, 13:07. ? FINDINGS:? Image quality:? Excellent.? ? Lungs and pleura:? No acute air space opacities.? No pleural effusions or pneumothorax.? Central and peripheral airways are patent and normal in caliber.? ? Mediastinum:? Multiple foci of gas are seen throughout the mediastinum and bilateral palomo.? Heart size is normal.? No pericardial effusion.? No mediastinal adenopathy by size criteria.? Thoracic aorta and central pulmonary arteries are normal in size.? Esophagus is normal in caliber.? No hiatal hernia.? ? Bones and chest wall:? No suspicious bony lesions.? No vertebral body compression fractures.? No axillary or supraclavicular adenopathy by size criteria.? Thyroid is unremarkable.? ? ? Abdomen:? No pneumoperitoneum.? Visualized upper abdominal solid organs and bowel loops appear normal in the absence of contrast.? ? IMPRESSION:? Nonspecific pneumomediastinum. No signs of esophageal perforation or disruption of the trachea or central bronchi.? ? Dictated by: Meño Beasley M.D. on 02/05/2022 at 13:45 ? ? Approved by: Meño Beasley M.D. on 02/05/2022 at 13:54 ? Chest x-ray: Radiologist's Impression: PROCEDURE:? XR CHEST 2V ? INDICATIONS:? soa ? TECHNIQUE:? 2 views of the chest were acquired.? ? COMPARISON:? [facility], CR, XR CHEST 2V, 06/05/2021, 14:09. ? FINDINGS:? ? Surgical changes and devices:? None.? ? Lungs and pleura:? Lungs are clear.? No pleural effusions or pneumothorax.? ? Mediastinum:? Subtle linear hypodensities are seen projecting over the upper mediastinum and lower neck.? Mediastinal contours are otherwise normal. ? Bones and chest wall:? No suspicious bony abnormalities.? Soft tissues appear unremarkable.? ? IMPRESSION:? 1. Possible linear hyperdensities projecting over the lower neck and upper mediastinum could represent pneumomediastinum.? Recommend CT of the chest for further evaluation. 2. Lungs are clear.? No pneumothorax.? ? Dictated by: Meño Beasley M.D. on 02/05/2022 at 12:38 ? ? Approved by: Meño Beasley M.D. on 02/05/2022 at 12:42 ? [facility] Narrative Medical decision making narrative: 21-year-old male presents to the emergency department with 2 days of burning throat and chest. Patient states that he used 2-3 vials of smelling salts AKA ammonia prior to a heavy weightlifting session for 3 days in succession, following which yesterday he started experiencing burning in his throat and chest. Concern for inhalation injury versus esophageal rupture versus pneumomediastinum versus ACS. 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 The risks of not getting a cardiac workup which include chest pain, heart attack, were explained to the patient, the patient verbalized understanding but still declined blood work. Chest x-ray was ordered, which showed a possible pneumomediastinum and no other acute findings. CT chest was obtained, which confirmed the pneumomediastinum but no esophageal rupture, no disruption of the trachea or central bronchi, no pneumoperitoneum. Patient was counseled to refrain from smoking, ammonia inhalation, cocaine use, marijuana use. Patient given viscous lidocaine for symptoms. Discharged home with prescription for prednisone, albuterol inhaler. ED return precautions were discussed in detail with patient. Patient verbalized understanding. Discharge Plan Departure Patient Disposition: Home Clinical Impression: Pneumomediastinum Instructions: DI for Inhalation Injury Activity Restrictions/Additional Instructions: You were evaluated in the ED today for an inhalation injury. Your chest x-ray and CT shows a pneumo mediastinum, which is a condition where that is air in you mediastinum, likely caused by injury to the tissues from the ammonia/cocaine inhalation. Your vital signs are stable, your airway appears open and you are breathing normally. You declined blood tests and a cardiac workup today and you were explained the risks of declining the workup including chest pain, heart attack, . Please refrain from smoking, using cocaine, inhaling ammonia. You may use the albuterol inhaler, take the prednisone as prescribed. Please return to the ED if you notice any throat swelling, trouble breathing, chest pain. Prescriptions: New prednisone 20 mg tablet 40 mg PO DAILY 5 Days Qty: 10 0RF albuterol sulfate 90 mcg/actuation HFA aerosol inhaler 1 inh inhalation QID PRN (Reason: shortness of breath or wheezing) Qty: 8.5 2RF No Action ondansetron 4 mg tablet,disintegrating 4 mg PO Q6H PRN (Reason: nausea and vomiting) Qty: 14 0RF metoclopramide HCl [Reglan] 10 mg tablet 10 mg PO Q6H PRN (Reason: nausea and vomiting) Qty: 14 0RF ondansetron 4 mg tablet,disintegrating 4 mg PO Q8H PRN (Reason: nausea and vomiting) Qty: 10 0RF pantoprazole [Protonix] 40 mg tablet,delayed release (DR/EC) 40 mg PO DAILY Qty: 14 0RF sucralfate [Carafate] 1 gram tablet 1 g PO BID Qty: 20 0RF amoxicillin 500 mg capsule 500 mg PO BID Qty: 20 0RF Stand Alone Forms: Work Release Note Visit Report Forms: Patient Portal/API <Rodrigo Lopez MD - Last Filed: 02/06/22 08:49> Cosign ED Attending Cosignature Attestation: I was immediately available for consultation of this patient was seen and evaluated by the APC in the department.
== END 2022-02-05 15:48 | disposition home or self-care (01) ==
PROVIDERS: Emergency Provider Student in an Organized Health Care Education/Training Program
DX: J98.2 Interstitial emphysema (principal)
CPT/HCPCS: 71046; 71250; 99283; 99284

== ENCOUNTER 2022-04-23 20:39 | Emergency (ER) | payer OTHER, MEDICAID, SELFPAY ==
[2022-04-23 21:00] VITALS: BP 131/77; PULSE 93; RESP 20; TEMP 39.1; BMI 23.4
[2022-04-23 21:21] VITALS: TEMP 38.8
[2022-04-23] MEDS: IBUPROFEN 400 MG TABLET 800 MG PO (21:21)
[2022-04-23 21:22] VITALS: TEMP 38.8
[2022-04-23] MEDS: ACETAMINOPHEN 325 MG TABLET 975 MG PO (21:22)
[2022-04-23 23:13] LABS: COVID19 -Nasal RAPID POSITIVE (Negative)
--- NOTE | 2022-04-23 23:31 | ED_ITS ---
HPI - Fever General Chief Complaint: Fever Stated Complaint: COVID + Time Seen by Provider: 04/23/22 21:36 Source: patient Mode of arrival: Ambulatory History of Present Illness HPI Narrative: 21-year-old male daily smoker with noncontributory medical history presents with a chief complaint nasal congestion, runny nose, sore throat, cough, body aches and subjective fever over the past 24 hours or so. He denies any significant shortness of breath or GI symptoms such as nausea, vomiting or diarrhea. He denies runny nose or ear pain. He denies any known exposure to persons with COVID Related Data Previous Rx's Medication Instructions Recorded metoclopramide HCl 10 mg tablet 10 mg PO Q6H PRN nausea and 07/27/19 (Reglan) vomiting #14 tabs ondansetron 4 mg disintegrating 4 mg PO Q6H PRN nausea and 07/27/19 tablet vomiting #14 tabs ondansetron 4 mg disintegrating 4 mg PO Q8H PRN nausea and 07/06/20 tablet vomiting #10 tabs pantoprazole 40 mg tablet,delayed 40 mg PO DAILY #14 tabs 07/06/20 release (Protonix) sucralfate 1 gram tablet (Carafate) 1 g PO BID #20 tabs 07/06/20 amoxicillin 500 mg capsule 500 mg PO BID #20 caps 10/12/21 albuterol sulfate 90 mcg/actuation 1 inh inhalation QID PRN shortness 02/05/22 aerosol inhaler of breath or wheezing #8.5 grams nirmatrelvir 300 mg (150 mg See Rx Instructions PO .COMPLEX 04/23/22 x2)-ritonavir 100 mg tablet,dose #30 ea pack(EUA) (Paxlovid) ondansetron 4 mg disintegrating 4 mg PO TID-QID PRN nausea and 04/23/22 tablet vomiting #10 tabs Allergies Allergy/AdvReac Type Severity Reaction Status Date / Time morphine Allergy Hives Verified 10/12/21 14:34 Review of Systems Review of Systems Narrative: GENERAL: See HPI HEENT: See HPI RESPIRATORY: See HPI CARDIOVASCULAR: Denies chest pain, palpitations, orthopnea, edema, GASTROINTESTINAL: Denies nausea, vomiting, abdominal pain, diarrhea, constipation, melena. : Denies dysuria, frequency, incontinence, hematuria, urinary retention. MUSCULOSKELETAL: denies weakness, joint pain, or bony pain SKIN: Denies rash, skin lesions, or other NEUROLOGIC: Denies weakness, headache, numbness, change in speech, confusion, seizures, incoordination. PSYCHIATRIC: No concerning psychosocial issues. 12 point review of systems is negative except for those stated above Patient History Medical History Asthma Social History Smoking Status: Current every day smoker Smoking Status: Current every day smoker tobacco type: cigarettes and vaping alcohol intake frequency: 3 or more drinks per day Substance Use Type: marijuana Exam Narrative Exam Narrative: GENERAL: [21] year old patient appears stated age. Well-developed patient, in mild distress. HEAD: Atraumatic. Normocephalic. EYES: Pupils equal round and reactive. Extraocular motions intact. No scleral icterus. No injection or drainage. ENT: Nose without bleeding, purulent drainage. Throat without erythema, tonsillar hypertrophy or exudate. Airway patent. NECK: Trachea midline. Non tender CARDIOVASCULAR: Regular rate and rhythm without murmurs, gallops, or rubs. RESPIRATORY: Clear to auscultation. Breath sounds equal bilaterally. No wheezes, rales, or rhonchi. GASTROINTESTINAL: Abdomen soft, non-tender, nondistended. EXTREMITIES: No edema or joint tenderness. BACK: Nontender without deformity or crepitance. No flank tenderness. NEURO: AOx3. SKIN: No rash or erythema of visible areas Initial Vital Signs Initial Vital Signs: Vital Signs Temperature 102.3 F H 04/23/22 21:00 Pulse Rate 93 H 04/23/22 21:00 Respiratory Rate 20 04/23/22 21:00 Blood Pressure 131/77 04/23/22 21:00 Oxygen Delivery Method 04/23/22 21:00 Course Orders Ordered: ED Orders 04/23/22 22:57 COVID19 -Nasal RAPID/Pre-Proc Stat Discontinued Medications Acetaminophen (Acetaminophen 325 Mg Tablet) 975 mg PO NOW ONE Stop: 04/23/22 21:16 Last Admin: 04/23/22 21:22 Dose: 975 mg Documented By: JONATHON Ibuprofen (Ibuprofen 400 Mg Tablet) 800 mg PO NOW ONE Stop: 11/21/22 21:16 Last Admin: 04/23/22 21:21 Dose: 800 mg Documented By: JONATHON Ondansetron HCl (Ondansetron 4 Mg Odt Prepack) 1 bottle MISC SEEINSTR ONE Stop: 04/23/22 23:37 Last Admin: 04/23/22 23:43 Dose: 1 bottle Documented By: JONATHON Vital Signs Vital signs: Vital Signs - 8 hr 04/23/22 23:43 04/23/22 23:45 Temperature 98.5 F Pulse Rate 77 Blood Pressure 150/86 H Pulse Oximetry 97 Oxygen Delivery Method Room Air MDM - Fever Lab Data Labs: Lab Results 04/23/22 Range/Units 22:57 SARS-CoV-2 (PCR) Positive H (Negative) Discharge Plan Departure Patient Disposition: Home Clinical Impression: COVID-19 Instructions: COVID-19 Activity Restrictions/Additional Instructions: *You have been diagnosed with [ COVID-19] *What to do: ?* per recommendations from the CDC and the [facility] Department of Health ?* stay home except to get medical care. ?Restrict activities outside your home, except for getting medical care. ?Do not go to work, school, or public areas. ?Avoid using public transportation, ride sharing, or taxis. ?* separate yourself from other people in your home. ?* call ahead before visiting your doctor ?* Wear a facemask ?* Cover your coughs and sneezes ?* Clean your hands often ?* Avoid sharing household items ?* Clean all high-touch services every day ?* Monitor your symptoms and seek prompt medical attention if your illness is worsening, particularly with difficulty in breathing. You may discontinue your isolation when: ?1. You have been fever-free for at least 24 hours without the use of fever reducing medication, AND ?2. Your symptoms are getting better, AND ?3. At least 5 days have passed since symptoms first appeared ?4. If you have fever, continue to stay home until fever resolves Individuals with laboratory confirmed COVID-19 who have not had any symptoms may discontinue home isolation when at least 5 days have passed since the date of their first COVID-19 diagnostic test and have had no subsequent illness You should notifiy any friends and family that have been in close contact *If up to date on COVID Vaccines, then they do not need to quarantine unless symptoms develop. Get tested on day 5 (or sooner if symptoms develop). Take precautions and watch for symptoms until day 10 *If NOT up to date on COVID Vaccines, then CDC recommends quarantine for at least 5 full days. Wear a well fitted mask at home if you must be around others. If they ?develop symptoms they should get tested. If they remain asymptomatic they should get tested on day 5. They should take precautions and monitor for symptoms until day 10. Prescriptions: New ondansetron 4 mg tablet,disintegrating 4 mg PO TID-QID PRN (Reason: nausea and vomiting) Qty: 10 0RF Paxlovid (EUA) 300 mg (150 mg x 2)-100 mg tablets,dose pack See Rx Instructions .ROUTE .COMPLEX Qty: 30 0RF Rx Instructions: take TWO 150 mg tablets of nirmatrelvir with ONE 100 mg tablet of ritonavir twice daily for 5 days No Action ondansetron 4 mg tablet,disintegrating 4 mg PO Q6H PRN (Reason: nausea and vomiting) Qty: 14 0RF metoclopramide HCl [Reglan] 10 mg tablet 10 mg PO Q6H PRN (Reason: nausea and vomiting) Qty: 14 0RF ondansetron 4 mg tablet,disintegrating 4 mg PO Q8H PRN (Reason: nausea and vomiting) Qty: 10 0RF pantoprazole [Protonix] 40 mg tablet,delayed release (DR/EC) 40 mg PO DAILY Qty: 14 0RF sucralfate [Carafate] 1 gram tablet 1 g PO BID Qty: 20 0RF amoxicillin 500 mg capsule 500 mg PO BID Qty: 20 0RF albuterol sulfate 90 mcg/actuation HFA aerosol inhaler 1 inh inhalation QID PRN (Reason: shortness of breath or wheezing) Qty: 8.5 2RF Visit Report Forms: Patient Portal/API
[2022-04-23 23:43] VITALS: BP 150/86; PULSE 77; O2SAT 97
[2022-04-23] MEDS: ONDANSETRON 4 MG ODT PREPACK 1 BOTTLE MISC (23:43)
[2022-04-23 23:45] VITALS: TEMP 36.9
== END 2022-04-23 23:52 | disposition home or self-care (01) ==
PROVIDERS: Emergency Provider Emergency Medicine
DX: U07.1 COVID-19 (principal)
CPT/HCPCS: 87635; 99282; 99283; C9803

== ENCOUNTER 2024-07-05 12:09 | Emergency (ER) | payer SELFPAY ==
[2024-07-05 12:22] VITALS: BP 143/72; PULSE 93; RESP 18; TEMP 37.7; O2SAT 99; BMI 23.7
[2024-07-05 13:09] LABS: Appearance Urine UA CLEAR; Bilirubin Urine UA 1+ (NEGATIVE); Color Urine UA YELLOW; Glucose Urine UA NEGATIVE (Negative); Ketones Urine UA 3+ (NEGATIVE); Leukocyte Esterase Urine UA NEGATIVE (NEGATIVE); Nitrite Urine UA NEGATIVE (Negative); Occult Blood Urine UA TRACE-INTACT (Negative); Protein Urine UA 1+ (Negative); Urobilinogen Urine UA 0.2 E.U./dL (0.2)
[2024-07-05 13:12] LABS: Ictotest Urine Negative (Negative)
[2024-07-05 13:16] LABS: Bacteria Urine Occasional (0-1); Culture Indicated Urine Cult Not Indicated; RBC Urine 1-5/HPF (0-5/HPF); Squamous Epithelial Cell Urine 1-5 /HPF (0-5/HPF); Urine Volume 10mL (spun); WBC Urine 1-5/HPF (0-5/HPF)
[2024-07-05 13:33] LABS: Influenza A - CEPHEID Flu A NEGATIVE (NEGATIVE); Influenza B - CEPHEID Flu B NEGATIVE (NEGATIVE); Respiratory Syncytial Virus Negative (Negative)
[2024-07-05 13:36] LABS: COVID-19 CEPHEID 4-PLEX PCR Negative (Negative)
[2024-07-05] MEDS: ONDANSETRON 4 MG ODT SL (13:45)
--- NOTE | 2024-07-05 14:03 | CM.SWNOTE ---
ED PHYSICS FACULTY MEMBER Note PHYSICS FACULTY MEMBER receives consult due to concern for patient not having insurance. Patient is 23 y/o male who presents with his 9 month old daughter, and s/o due to concerns for N/V/D. It is reported that patient's s/o and daughter have insurance but patient does not. PHYSICS FACULTY MEMBER reviews EMR and it is reported that patient has had Medicaid in the past. It is reported that patient applied for insurance via phone recently and it was reported to him that he had insurance but then when he went to the dentist they stated he did not. Per registration, patient does not have insurance and was provided starr care packet. PHYSICS FACULTY MEMBER encourages patient to fill out starr packet and return it or he can apply for state insurance and when enrolled it will back date to the beginning of the month, PHYSICS FACULTY MEMBER encourages patient to infrom IH either way. PHYSICS FACULTY MEMBER provides contact information for applying for state insurance. Patient and family deny any other concerns. Plan: patient to d/c with family upon medical clearance. DRAKE HendersonSW
--- NOTE | 2024-07-05 14:37 | ED_ITS ---
HPI - Nausea/Vomiting/Diarrhea <EDITA Jha - Last Filed: 07/05/24 14:47> General Chief complaint: Nausea/Vomiting/Diarrhea Stated complaint: N/V/D Time Seen by Provider: 07/05/24 13:19 Source: patient Mode of arrival: Ambulatory History of Present Illness HPI Narrative: 23-year-old male, former smoker, presents to the emergency department with complaints of body aches, fatigue, nausea, vomiting and diarrhea since last evening. Patient's daughter had similar symptoms over the last 2 days but is gradually improving. Patient's spouse has identical symptoms and started within 15 minutes of themselves. Patient and spouse did eat the same pizza prior to feeling ill but contained no hamburger or sausage. Both have eaten from this place on a frequent basis. Related Data Previous Rx's Medication Instructions Recorded metoclopramide HCl 10 mg tablet 10 mg PO Q6H PRN nausea and 07/27/19 (Reglan) vomiting #14 tabs ondansetron 4 mg disintegrating 4 mg PO Q6H PRN nausea and 07/27/19 tablet vomiting #14 tabs ondansetron 4 mg disintegrating 4 mg PO Q8H PRN nausea and 07/06/20 tablet vomiting #10 tabs pantoprazole 40 mg tablet,delayed 40 mg PO DAILY #14 tabs 07/06/20 release (Protonix) sucralfate 1 gram tablet (Carafate) 1 g PO BID #20 tabs 07/06/20 amoxicillin 500 mg capsule 500 mg PO BID #20 caps 10/12/21 albuterol sulfate 90 mcg/actuation 1 inh inhalation QID PRN shortness 02/05/22 aerosol inhaler of breath or wheezing #8.5 grams nirmatrelvir 300 mg (150 mg See Rx Instructions PO .COMPLEX 04/23/22 x2)-ritonavir 100 mg tablet,dose #30 ea pack (Paxlovid) ondansetron 4 mg disintegrating 4 mg PO TID-QID PRN nausea and 04/23/22 tablet vomiting #10 tabs ondansetron 4 mg disintegrating 4 mg PO Q6H PRN nausea and 07/05/24 tablet vomiting #30 tabs Allergies Allergy/AdvReac Type Severity Reaction Status Date / Time morphine Allergy Hives Verified 10/12/21 14:34 Review of Systems <EDITA Jha - Last Filed: 07/05/24 14:47> Review of Systems Narrative: Narrative: See HPI. GENERAL: Denies chills, fever, sweats. Endorses fatigue and body aches. HEENT: Denies sinus pain, ear pain, sore throat, difficulty swallowing, dizzines s. RESPIRATORY: Denies dyspnea, cough, wheezing, sputum. CARDIOVASCULAR: Denies chest pain, palpitations, edema. GASTROINTESTINAL: Denies abdominal pain, constipation. Endorses nausea, vomiting and diarrhea. : Denies dysuria, frequency, incontinence, hematuria, urinary retention, flank pain. MSK: Denies weakness, joint pain, or bony pain. SKIN: Denies rash, skin lesions, or pruritis. NEUROLOGIC: Denies weakness, dizziness, headache, numbness, confusion. PSYCHIATRIC: No concerning psychosocial issues. Patient History <EDITA Jha - Last Filed: 07/05/24 14:47> Medical History Asthma Social History Smoking Status: Former smoker Smoking Status: Former smoker tobacco type: cigarettes and vaping alcohol intake frequency: 3 or more drinks per day Exam <EDITA Jha - Last Filed: 07/05/24 14:47> Narrative Exam Narrative: Exam Narrative: GENERAL: This is a well-nourished, well-developed patient, in no acute distress. HEAD: Atraumatic. Normocephalic. EYES: Pupils equal round and reactive. No scleral icterus, injection or drainage. ENT: Nose without bleeding, purulent drainage. Throat without erythema, tonsillar hypertrophy or exudate. Uvula midline. Airway patent. TMs and canals clear, with bilateral effusion. NECK: Trachea midline. No JVD or lymphadenopathy. Nontender. CARDIOVASCULAR: Regular rate and rhythm without murmurs, peripheral pulses intact, cap refill <2 sec. RESPIRATORY: Breath sounds equal and clear bilaterally. No wheezes, rales, or rhonchi. No cough. No increased respiratory effort. No accessory muscle use. GASTROINTESTINAL: Abdomen soft, generalized tenderness, nondistended without guarding or rebound. No suprapubic pain. MSK: Moves all extremities. Normal range of motion, no clubbing or edema. Neurovascularly intact. NEURO: A&O x 3. SKIN: Warm, dry, no rashes or lesions noted. Initial Vital Signs Initial Vital Signs: Vital Signs Temperature 100 F H 07/05/24 12:22 Pulse Rate 93 H 07/05/24 12:22 Respiratory Rate 18 07/05/24 12:22 Blood Pressure 143/72 H 07/05/24 12:22 Pulse Oximetry 99 07/05/24 12:22 Oxygen Delivery Method Room Air 07/05/24 12:22 Reviewed <Nivia Cardona DO - Last Filed: 07/05/24 18:35> Initial Vital Signs Initial Vital Signs: Vital Signs Temperature 100 F H 07/05/24 12:22 Pulse Rate 93 H 07/05/24 12:22 Respiratory Rate 18 07/05/24 12:22 Blood Pressure 143/72 H 07/05/24 12:22 Pulse Oximetry 99 07/05/24 12:22 Oxygen Delivery Method Room Air 07/05/24 12:22 Course <EDITA Jha - Last Filed: 07/05/24 14:47> Orders Ordered: ED Orders 07/05/24 12:42 Consult to [facility] [place] [employer] Stat 07/05/24 12:48 Covid-19 + FLU A/B + RSV - PCR Stat 07/05/24 12:56 Ictotest Urine Stat Urinalysis and Microscopic Stat Discontinued Medications Ondansetron HCl (Ondansetron 4 Mg/2 Ml Inj) 4 mg IV NOW PRN PRN Reason: Nausea And Vomiting Ondansetron HCl (Ondansetron 4 Mg Odt) 4 mg SL NOW PRN PRN Reason: Nausea And Vomiting Last Admin: 07/05/24 13:45 Dose: 4 mg Documented By: LEXX Vital Signs Vital signs: Vital Signs - 8 hr 07/05/24 12:22 07/05/24 15:31 Temperature 100 F H Pulse Rate 93 H 92 H Respiratory Rate 18 14 Blood Pressure 143/72 H 117/63 Pulse Oximetry 99 98 Oxygen Delivery Method Room Air Room Air <Nivia Cardona DO - Last Filed: 07/05/24 18:35> Orders Ordered: ED Orders 07/05/24 12:42 Consult to [facility] [place] [employer] Stat 07/05/24 12:48 Covid-19 + FLU A/B + RSV - PCR Stat 07/05/24 12:56 Ictotest Urine Stat Urinalysis and Microscopic Stat Discontinued Medications Ondansetron HCl (Ondansetron 4 Mg/2 Ml Inj) 4 mg IV NOW PRN PRN Reason: Nausea And Vomiting Ondansetron HCl (Ondansetron 4 Mg Odt) 4 mg SL NOW PRN PRN Reason: Nausea And Vomiting Last Admin: 07/05/24 13:45 Dose: 4 mg Documented By: LEXX Vital Signs Vital signs: Vital Signs - 8 hr 07/05/24 12:22 07/05/24 15:31 Temperature 100 F H Pulse Rate 93 H 92 H Respiratory Rate 18 14 Blood Pressure 143/72 H 117/63 Pulse Oximetry 99 98 Oxygen Delivery Method Room Air Room Air MDM - Nausea/Vomiting/Diarrhea <EDITA Jha - Last Filed: 07/05/24 14:47> Differential Diagnosis Differential diagnosis: Likely dehydration and other (Viral illness) Lab Data Labs: Lab Results 07/05/24 07/05/24 Range/Units 12:48 12:56 Urine Color Yellow Urine Appearance Clear Urine pH 6.0 (4.5-8.0) Ur Specific [place] 1.020 (1.000-1.035) Urine Protein 1+ H (Negative) Urine Glucose (UA) Negative (Negative) g/dL Urine Ketones 3+ H (NEGATIVE) Urine Occult Blood Trace-intact (Negative) Urine Nitrate Negative (Negative) Urine Bilirubin 1+ H (NEGATIVE) Ur Bilirubin Confirm Negative (Negative) Urine Urobilinogen 0.2 (0.2) E.U./dL Ur Leukocyte Esterase Negative (NEGATIVE) Urine RBC 1-5/hpf (0-5/HPF) Urine WBC 1-5/hpf (0-5/HPF) Ur Squamous Epith Cells 1-5 /hpf (0-5/HPF) Urine Bacteria Occasional (0-1) (None) Ur Culture Indicated? Cult not indicated Vol Urine Centrifuged 10ml (spun) SARS-CoV-2 (PCR) Negative (Negative) Influenza A (RT-PCR) Flu a negative (NEGATIVE) Influenza B (RT-PCR) Flu b negative (NEGATIVE) RSV (PCR) Negative (Negative) Urine Dip Bedside Urine Glucose Negative Bedside Urine Bilirubin - Negative Bedside Urine Ketone +++ 80 Urine Specific [place] 1.020 Bedside Urine Occult Blood - Negative Bedside Urine pH 6.0 Bedside Urine Protein +/- 15 Bedside Urine Urobilinogen - Negative Bedside Urine Nitrite - Negative Bedside Urine Leukocytes - Negative Esterase MDM Narrative Medical decision making narrative: 23-year-old male with nausea, vomiting & diarrhea. Assessment was encouraging and clinical findings were suggestive of a viral illness. Point of care urine dip was not consistent with a UTI, viral panel was negative for COVID, influenza and RSV. Recommended supportive care that includes rest, increased oral hydration and [id number] medications as needed for discomfort. Patient was given ondansetron and as resolved his nausea and now able to drink without difficulty. Will prescribe ondansetron for he and his , since they are currently without insurance. Discussed plan of care and return precautions with patient, who verbalized understanding and was agreeable with course of action. <Nivia Cradona, DO - Last Filed: 07/05/24 18:35> Lab Data Labs: Lab Results 07/05/24 07/05/24 Range/Units 12:48 12:56 Urine Color Yellow Urine Appearance Clear Urine pH 6.0 (4.5-8.0) Ur Specific [place] 1.020 (1.000-1.035) Urine Protein 1+ H (Negative) Urine Glucose (UA) Negative (Negative) g/dL Urine Ketones 3+ H (NEGATIVE) Urine Occult Blood Trace-intact (Negative) Urine Nitrate Negative (Negative) Urine Bilirubin 1+ H (NEGATIVE) Ur Bilirubin Confirm Negative (Negative) Urine Urobilinogen 0.2 (0.2) E.U./dL Ur Leukocyte Esterase Negative (NEGATIVE) Urine RBC 1-5/hpf (0-5/HPF) Urine WBC 1-5/hpf (0-5/HPF) Ur Squamous Epith Cells 1-5 /hpf (0-5/HPF) Urine Bacteria Occasional (0-1) (None) Ur Culture Indicated? Cult not indicated Vol Urine Centrifuged 10ml (spun) SARS-CoV-2 (PCR) Negative (Negative) Influenza A (RT-PCR) Flu a negative (NEGATIVE) Influenza B (RT-PCR) Flu b negative (NEGATIVE) RSV (PCR) Negative (Negative) Urine Dip Bedside Urine Glucose Negative Bedside Urine Bilirubin - Negative Bedside Urine Ketone +++ 80 Urine Specific [place] 1.020 Bedside Urine Occult Blood - Negative Bedside Urine pH 6.0 Bedside Urine Protein +/- 15 Bedside Urine Urobilinogen - Negative Bedside Urine Nitrite - Negative Bedside Urine Leukocytes - Negative Esterase Discharge Plan Departure Patient Disposition: Home Clinical Impression: Viral illness Instructions: DI for Vomiting -- Adult Activity Restrictions/Additional Instructions: *You have been diagnosed with a viral illness. My assessment was encouraging and suspect you have a viral illness. This is treated with good supportive care that includes rest, increased oral hydration and [id number] medications as needed for discomfort. I will prescribe some antinausea medication that should allow you to stay well hydrated. For any worsening symptoms please feel free to return to the emergency department. *What to do: *Please continue to take your regular medications as directed. [ x] [facility] medication [facility] your [facility]: [facility] [ ] New medication written as a paper prescription [ ] No new medications given *Please follow up with your primary care provider in 2-3 days, call for an appointment. Let them know you were seen in the Emergency Department and that we ask that you be seen in follow up. We will electronically transmit a record of today's note if your PCP is in our system *If you do not have a primary care provider please contact the [facility] Resource line at [phone]. They will ask some questions about your medical history and help get you set up with a doctor in the community. ? Return to ER if you should have any new, worsening or concerning symptoms, such as worsening pain, severe headache, confusion, chest pain, difficulty breathing, fever greater than 101 F, shaking chills, persistent vomiting to the point that you cannot drink fluids, or other new or worsening symptoms. Prescriptions: New ondansetron 4 mg tablet,disintegrating 4 mg PO Q6H PRN (Reason: nausea and vomiting) Qty: 30 0RF No Action ondansetron 4 mg tablet,disintegrating 4 mg PO Q6H PRN (Reason: nausea and vomiting) Qty: 14 0RF metoclopramide HCl [Reglan] 10 mg tablet 10 mg PO Q6H PRN (Reason: nausea and vomiting) Qty: 14 0RF ondansetron 4 mg tablet,disintegrating 4 mg PO Q8H PRN (Reason: nausea and vomiting) Qty: 10 0RF pantoprazole [Protonix] 40 mg tablet,delayed release (DR/EC) 40 mg PO DAILY Qty: 14 0RF sucralfate [Carafate] 1 gram tablet 1 g PO BID Qty: 20 0RF amoxicillin 500 mg capsule 500 mg PO BID Qty: 20 0RF albuterol sulfate 90 mcg/actuation HFA aerosol inhaler 1 inh inhalation QID PRN (Reason: shortness of breath or wheezing) Qty: 8.5 2RF ondansetron 4 mg tablet,disintegrating 4 mg PO TID-QID PRN (Reason: nausea and vomiting) Qty: 10 0RF Paxlovid 300 mg (150 mg x 2)-100 mg tablets,dose pack See Rx Instructions .ROUTE .COMPLEX Qty: 30 0RF Rx Instructions: take TWO 150 mg tablets of nirmatrelvir with ONE 100 mg tablet of ritonavir twice daily for 5 days Stand Alone Forms: Patient Portal/API/Survey, Work Release Note ED Sign-out <Nivia Cardona DO - Last Filed: 07/05/24 18:35> Cosign ED Attending Cosignature Attestation: I was immediately available in the department for consultation.
--- NOTE | 2024-07-05 15:29 | PC.NURSE ---
patient had same symptoms as sig other. fatigue, nausea, vomting, diarrhea, muslce aches, weakness, joint pain. no fever. no SOB. yes sweating. feeling dehydrated.
[2024-07-05 15:31] VITALS: BP 117/63; PULSE 92; RESP 14; O2SAT 98
== END 2024-07-05 15:32 | disposition home or self-care (01) ==
PROVIDERS: Emergency Medicine; Emergency Provider Registered Nurse
DX: B34.9 Viral infection, unspecified (principal); Z87.891 Personal history of nicotine dependence
CPT/HCPCS: 0241U; 81001; 81003; 99283